=== PATIENT | female | born 1945 | race Caucasian/White ===

== ENCOUNTER → 2021-09-24 10:10 | Outpatient (BNVA) | payer MEDICARE, SELFPAY | PROVIDERS: PCP Internal Medicine Rheumatology; Visit Provider Internal Medicine Rheumatology | DX: M19.90 Unspecified osteoarthritis, unspecified site (principal); R76.8 Other specified abnormal immunological findings in serum; Z79.899 Other long term (current) drug therapy; Z11.59 Encounter for screening for other viral diseases; Z11.1 Encounter for screening for respiratory tuberculosis; M54.50 Low back pain, unspecified; G89.29 Other chronic pain; Z96.643 Presence of artificial hip joint, bilateral; Z96.653 Presence of artificial knee joint, bilateral; Z71.85 Encounter for immunization safety counseling; M45.6 Ankylosing spondylitis lumbar region | CPT/HCPCS: 36415; 72170; 73130; 80076; 81001; 82306; 82565; 82570; 84156; 86140; 86160; 86162; 86200; 86235; 86255; 86376; 86480; 86704; 86803; 86812; 87340; 99204 ==

== ENCOUNTER 2021-09-24 12:54 | Outpatient (CLI) | payer MEDICARE, SELFPAY ==
--- NOTE | 2021-09-24 13:08 | XR_ITS ---
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 Findings: There is osteoarthritic narrowing of the PIP and DIP joints of the second through fifth fingers of le ft hand. 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 Osteoarthritic change of the carpal bone s and radiocarpal and ulnar carpal articulations is present. No periarticular demineralization or lisa cifications are seen. There are no fractures or dislocations. 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
--- NOTE | 2021-09-24 13:08 | XR_ITS ---
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 Findings: Bilateral hip arthroplasties are present. No loosening is seen. No new fractures or dislocations are noted. The SI joints and pubic symphysis are not remarkable. There is a levoscoliosis of the lower guy mbar spine. XR/XR pelvis 1-2V* [id number] Impression: Bilateral hip arthroplasties.
--- NOTE | 2021-09-24 13:08 | XR_ITS ---
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 Findings: No fractures or dislocations are seen. There is minimal osteoarthritic narrowing of the P IP and DIP joints of the second through fifth fingers. There is osteoarthritic change of the right fi rst IP joint. The MCP joints are well preserved.No periarticular demineralization or calcifications a re seen. XR/XR hand RT min 3V* [id number] Impression: Osteoarthritic narrowing of the PIP and DIP joints of the right hand.
[2021-09-24 14:35] LABS: Bacteria Urine TRACE /hpf; Bilirubin Urine Neg (Negative); Blood Urine Neg (Negative); Glucose Urine UA Norm (Normal); Ketones Urine Negative (Negative); Leukocyte Esterase Urine Negative (Negative); Nitrate Urine Negative (Negative); Protein Urine Neg (Negative); Specific Gravity, Urine 1.015 (1.005-1.030); Squamous Epithelial Cell Urine 0-4 /hpf (0-5); Urine Appearance Clear (CLEAR); Urine Color Yellow (Yellow); Urobilinogen Urine Norm (Negative); WBC Urine 0-4 /hpf (0-5); pH Urine 6.5 (5-7)
[2021-09-24 14:36] LABS: Add Urine Culture? No
[2021-09-24 14:49] LABS: Alanine Aminotransferase 8 U/L (0-33); Albumin Level 4.6 g/dL (3.5-5.2); Alkaline Phosphatase 88 IU/L (35-105); Aspartate Amino Transferase 14 U/L (0-32); Globulin 3.6 g/dL (1.3-4.6); Total Bilirubin 0.6 mg/dL (0.15-1.2); Total Protein 8.2 g/dL (6.6-8.7)
[2021-09-24 14:52] LABS: Urine Creatinine 139 mg/dL (28-217); Urine Protein Random 14 mg/dL
[2021-09-24 15:09] LABS: Hepatitis B Core AB, Total Non-Reactive (Nonreactive); Hepatitis B Surface Antigen Non-Reactive (Nonreactive); Hepatitis C Virus Antibody Non-Reactive (Nonreactive)
[2021-09-24 15:56] LABS: 25 Hydroxy Vitamin D 45 ng/mL (30-100)
[2021-09-25 15:07] LABS: THYROID PEROXIDASE ANTIBODIES 1 IU/mL (<9)
[2021-09-25 17:03] LABS: CENTROMERE B ANTIBODY <1.0 NEG AI (<1.0 NEG); JO-1 ANTIBODY <1.0 NEG AI (<1.0 NEG); RNP ANTIBODY <1.0 NEG AI (<1.0 NEG); SCL-70 ANTIBODY <1.0 NEG AI (<1.0 NEG); SJOGREN'S ANTIBODY (SS-A) <1.0 NEG AI (<1.0 NEG); SM ANTIBODY <1.0 NEG AI (<1.0 NEG); SS-B <1.0 NEG AI (<1.0 NEG)
[2021-09-25 17:29] LABS: ANA SCREEN, IFA NEGATIVE (NEGATIVE)
[2021-09-26 11:17] LABS: HLA-B27 NEGATIVE (NEGATIVE)
[2021-09-26 16:32] LABS: Quantiferon Mitogen >10.00 IU/mL; Quantiferon Nil 0.01 IU/mL; Quantiferon Plus TB1 0.02 IU/mL; Quantiferon Plus TB2 0.01 IU/mL; Quantiferon TB Gold NEGATIVE (NEGATIVE)
[2021-09-26 16:58] LABS: Cyclic Citrullinated Peptide <16 UNITS
[2021-09-27 12:17] LABS: COMPLEMENT COMPONENT C3C 167 mg/dL (83-193); COMPLEMENT COMPONENT C4C 40 mg/dL (15-57)
[2021-09-27 14:47] LABS: COMPLEMENT, TOTAL (CH50) >60 U/mL (31-60)
[2021-09-28 14:13] LABS: DNA AB (DS) CRITHIDIA,IFA NEGATIVE (NEGATIVE)
== END 2021-09-24 12:55 | disposition home or self-care (01) ==
LOC: RAD 13:02
PROVIDERS: PCP Internal Medicine Rheumatology; Visit Provider Internal Medicine Rheumatology
DX: M19.90 Unspecified osteoarthritis, unspecified site (principal); M45.6 Ankylosing spondylitis lumbar region; R76.8 Other specified abnormal immunological findings in serum; Z79.899 Other long term (current) drug therapy; Z11.59 Encounter for screening for other viral diseases; Z11.1 Encounter for screening for respiratory tuberculosis
CPT/HCPCS: 36415; 72170; 73130; 80076; 81001; 82306; 82565; 82570; 84156; 86140; 86160; 86162; 86200; 86235; 86255; 86376; 86480; 86704; 86803; 86812; 87340

== ENCOUNTER → 2021-12-31 10:07 | Outpatient (BNVA) | payer MEDICARE, SELFPAY | PROVIDERS: PCP Internal Medicine Rheumatology; Visit Provider Internal Medicine Rheumatology | DX: M19.90 Unspecified osteoarthritis, unspecified site (principal); R76.8 Other specified abnormal immunological findings in serum; M35.9 Systemic involvement of connective tissue, unspecified; Z79.899 Other long term (current) drug therapy; Z96.653 Presence of artificial knee joint, bilateral; Z96.643 Presence of artificial hip joint, bilateral; Z71.85 Encounter for immunization safety counseling | CPT/HCPCS: 99214 ==